=== PATIENT | male | born 1965 | race Caucasian/White ===

== ENCOUNTER 2018-02-25 16:21 | Emergency (ER) | payer SELFPAY ==
[2018-02-25] MEDS ORDERED: predniSONE TAB* 20 MG PO ONE (16:31)
[2018-02-25] MEDS ORDERED: NS 0.9% 1000 ML* 1,000 ML IV ONE (16:31)
[2018-02-25] MEDS ORDERED: Albuterol/Ipratropium NEB.SOL* Albuterol 2.5 MG/Ipratropium 0.5 MG 3 ML INH ONE (16:31)
[2018-02-25 16:47] LABS: ABS Basophils 0 10^3/ul (0-0.2); ABS Eosinophils 0.4 10^3/ul (0-0.6); ABS Lymphocytes 1.9 10^3/ul (1.0-4.8); ABS Monocytes 0.7 10^3/ul (0-0.8); ABS Neutrophils 3.4 10^3/ul (1.5-7.7); ABS Nucleated RBC 0 10^3/ul; Hematocrit 38 % (42-52); Hemoglobin 12.9 g/dl (14.0-18.0); Lymphocyte % 29.3 % (25-47); Mean Corpuscular HGB Conc 34 g/dl (31-36); Mean Corpuscular Hemoglobin 30 pg (27-31); Mean Corpuscular Volume 89 fL (80-94); Mean Platelet Volume 7.2 um3 (7.4-10.4); Platelet Count 262 10^3/ul (150-450); Red Blood Count 4.33 10^6/ul (4.0-5.4); Red Cell Distribution Width 13 % (10.5-15); White Blood Count 6.4 10^3/ul (3.5-10.8)
[2018-02-25 16:48] LABS: Eosinophil % 5.7 % (0-6); Nucleated Red Blood Cells % 0
[2018-02-25 17:03] LABS: EGFR Non-African American 84.6 (>60)
[2018-02-25 18:01] VITALS: BP 103/69
--- NOTE | 2018-02-25 18:05 | ED ---
Benjie Valerio Angela, scribed for Prem Lo MD on 02/25/18 at 1628 . Shortness of Breath - HPI Summary HPI Summary: This pt is a 52 y/o male presenting to [facility] via EMS for a syncopal episode today s/p SOB episode. Pt reports he became very SOB today and as he was trying to reach for his inhaler he passed out. 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 Pt notes he works in [place]issa environment and does not wear any protective gear. He reports "I am allergic to concrete." Denies fever, cough, chest pain. Pt states he has had two syncopal episodes in the past. He notes he woke up and went back to work. Pt has been to the hospital 6 times within the past 2 years due to SOB. PMHx: asthma. Pt is a current smoker. - History of Current Complaint Chief Complaint: EDShortnessOfBreath Hx Obtained From: Patient Onset/Duration: Gradual Onset, Still Present Timing: Constant Dyspnea At: Rest Aggrevating Factors: Nothing Alleviating Factors: Nothing Associated Signs & Symptoms: Negative Related History: Similar Episode - with syncope x2 in the past - Allergy/Home Medications Allergies/Adverse Reactions: Allergies Allergy/AdvReac Type Severity Reaction Status Date / Time No Known Allergies Allergy Verified 02/25/18 16:26 Home Medications: Home Medications Albuterol HFA INHALER* [Ventolin HFA Inhaler*] 2 puff PO Q4H PRN 02/25/18 [ History Confirmed 02/25/18] Ibuprofen 600 mg PO Q6H PRN 02/25/18 [History Confirmed 02/25/18] PMH/Surg Hx/FS Hx/Imm Hx Endocrine/Hematology History: Denies: Hx Diabetes Cardiovascular History: Denies: Hx Hypertension Respiratory History: Reports: Hx Asthma Infectious Disease History: No Infectious Disease History: Denies: Traveled Outside the [place] in Last 30 Days - Family History Known Family History: Negative: Cardiac Disease, Hypertension, Diabetes - Social History Alcohol Use: None Substance Use Type: Reports: None Smoking Status (MU): Current Every Day Smoker Review of Systems Negative: Fever, Chills Eyes: Negative Negative: Chest Pain Positive: Shortness Of Breath. Negative: Cough Genitourinary: Negative Musculoskeletal: Negative Positive: Syncope All Other Systems Reviewed And Are Negative: Yes Physical Exam - Summary Physical Exam Summary: Appearance: Well appearing, no pain distress Skin: warm, dry, reflects adequate perfusion. Not diaphoretic. Head/face: normal Eyes: EOMI, STEPHON ENT: normal Neck: supple, non-tender Respiratory: CTA, breath sounds present. Pt is tachypneic. He has good aeration without wheezes. Cardiovascular: RRR, pulses symmetrical Abdomen: non-tender, soft Bowel: present Musculoskeletal: normal, strength/ROM intact Neuro: normal, sensory motor intact, A&Ox3 Triage Information Reviewed: Yes Vital Signs On Initial Exam: Initial Vitals Temp Pulse Resp BP Pulse Ox 98.8 F 85 20 119/83 100 02/25/18 16:22 02/25/18 16:22 02/25/18 16:22 02/25/18 16:22 02/25/18 16:22 Vital Signs Reviewed: Yes Diagnostics - Vital Signs Vital Signs Temp Pulse Resp BP Pulse Ox 02/25/18 16:22 98.8 F 85 20 119/83 100 - Laboratory Lab Results: Lab Results 02/25/18 02/25/18 02/25/18 Range/Units 14:30 16:38 16:38 WBC 6.4 (3.5-10.8) 10^3/ul RBC 4.33 (4.0-5.4) 10^6/ul Hgb 12.9 L (14.0-18.0) g/dl Hct 38 L (42-52) % MCV 89 (80-94) fL MCH 30 (27-31) pg MCHC 34 (31-36) g/dl RDW 13 (10.5-15) % Plt Count 262 (150-450) 10^3/ul MPV 7.2 L (7.4-10.4) um3 Neut % (Auto) 53.0 (38-83) % Lymph % (Auto) 29.3 (25-47) % [place] % (Auto) 11.3 H (0-7) % Eos % (Auto) 5.7 (0-6) % Baso % (Auto) 0.7 (0-2) % Absolute Neuts (auto) 3.4 (1.5-7.7) 10^3/ul Absolute Lymphs (auto) 1.9 (1.0-4.8) 10^3/ul Absolute Monos (auto) 0.7 (0-0.8) 10^3/ul Absolute Eos (auto) 0.4 (0-0.6) 10^3/ul Absolute Basos (auto) 0 (0-0.2) 10^3/ul Absolute Nucleated RBC 0 10^3/ul Nucleated RBC % 0 ABG pH 7.43 (7.35-7.45) ABG pCO2 32 L (35-45) mmHg ABG pO2 117 H (80-100) mmHg ABG HCO3 23.1 (19-31) mmol/L ABG O2 Saturation 99.5 H (95-98) % ABG Base Excess -2.3 L (-2.0-2.0) Sodium 140 (139-145) mmol/L Potassium 3.5 (3.5-5.0) mmol/L Chloride 107 (101-111) mmol/L Carbon Dioxide 22 (22-32) mmol/L Anion Gap 11 (2-11) mmol/L BUN 12 (6-24) mg/dL Creatinine 0.94 (0.67-1.17) mg/dL Est GFR ( Amer) 108.8 (>60) Est GFR (Non-Af Amer) 84.6 (>60) BUN/Creatinine Ratio 12.8 (8-20) Glucose 90 (70-100) mg/dL Calcium 9.3 (8.6-10.3) mg/dL Result Diagrams: 02/25/18 16:38 02/25/18 16:38 Lab Statement: Any lab studies that have been ordered have been reviewed, and results considered in the medical decision making process. - EKG 16:34 Cardiac Rate: NL - at 72 bpm EKG Rhythm: Sinus Rhythm ST Segment: Normal EKG Interpretation: Normal axis. Normal intervals. Re-Evaluation - Re-Evaluation First Eval Re-Evaluation Time: 17:37 Change: Improved Comment: Pt feels better. He would like to be discharged home. 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 Today he was having difficulties after exposure when out to his truck and was breathing heavily to the point where he passed out. Breathing was somewhat improved by the time of arrival but he remained tachypneic. He was settled down and his respiratory rate began to settle out. He was started on steroids and additional breathing treatments were given. He was able to rest comfortably after this plus IV fluids. He was doing much better and requesting to discharge. O2 sats never been an issue. He was given referral for local primary care doctorAubrey to augment his albuterol inhaler and steroids. He understands that he should be on a controller medication and always wear a respirator during work around dust. - Diagnoses Differential Diagnosis/HQI/PQRI: Positive: Asthma, Other - COPD, hyperventilation syndrome, respiratory alkalosis, arrhythmia, electrolyte or metabolic abnormality Provider Diagnoses: Hyperventilation, Syncope, Asthma exacerbation - Critical Care Time Critical Care Time: 30-74 min - Critical care time is exclusive of separately billable procedures. Discharge - Sign-Out/Discharge Documenting (check all that apply): Discharge/Admit/Transfer - discharge to home - Discharge Plan Condition: Improved Disposition: HOME Prescriptions: Albuterol/Ipratropium RESP(NF) [Combivent Respimat(NF)] 1 puff IN Q6H PRN #1 aer PRN Reason: Shortness Of Breath predniSONE TAB* [Deltasone TAB*] 50 mg PO DAILY #5 tab Patient Education Materials: Asthma (ED), Hyperventilation (ED), Syncope (ED) Forms: *Work Release Referrals: [facility] [Outside] Non Staff,Doctor [Primary Care Provider] - Additional Instructions: Do not smoke. You must wear a respirator when you work. Return with difficulty breathing, fevers, chest pain, new symptoms or other concerns. - Billing Disposition and Condition Condition: IMPROVED Disposition: HOME The documentation as recorded by the Benjie stanford Angela accurately reflects the service I personally performed and the decisions made by me, Prem Lo MD.
== END 2018-02-25 18:00 | disposition home or self-care (01) ==
LOC: EDBD → ED 16:21
DX: R06.4 Hyperventilation (principal); R55 Syncope and collapse; J45.901 Unspecified asthma with (acute) exacerbation; R06.02 Shortness of breath; F17.210 Nicotine dependence, cigarettes, uncomplicated
CPT/HCPCS: 36415; 80048; 82803; 85025; 99283; J7512